=== PATIENT | female | born 1985 | race Hispanic/Latino ===

== ENCOUNTER 2018-10-19 20:59 | Emergency (ER) | payer MEDICAID, SELFPAY ==
--- NOTE | 2018-10-19 21:52 | RAD ---
RIGHT LONG FINGER THREE VIEWS: 10/19/18 INDICATION: Right finger pain. COMPARISON: None. FINDINGS: No acute fracture or subluxation is evident. No radiopaque foreign body is noted. IMPRESSION: No acute osseous abnormality. POS: [facility]
[2018-10-19] MEDS ORDERED: Ibuprofen 200 MG TAB ONE (22:31)
== END 2018-10-19 22:41 | disposition home or self-care (01) ==
LOC: ERS 20:59
DX: S63.612A Unspecified sprain of right middle finger, initial encounter (principal); W22.8XXA Striking against or struck by other objects, initial encounter